=== PATIENT | male | born 2000 | race Caucasian/White ===

== ENCOUNTER 2021-09-25 03:53 | Emergency (ER) | payer SELFPAY ==
[~2021-09-25] VITALS: Ht 177.8 cm; Wt 99.8 kg
--- NOTE | 2021-09-25 04:00 | NUR ---
PT [facility] TAKEN TO [facility]
[2021-09-25 04:18] VITALS: BP 148/88
== END 2021-09-25 04:30 ==
LOC: MED 03:53 → EDSEX 03:53 → MED 04:30
DX: Z02.89 Encounter for other administrative examinations (principal); V89.2XXA Person injured in unspecified motor-vehicle accident, traffic, initial encounter; Y93.89 Activity, other specified; Y92.410 Unspecified street and highway as the place of occurrence of the external cause; Y99.8 Other external cause status
CPT/HCPCS: 99283